=== PATIENT | female | born 2000 | race Caucasian/White ===

== ENCOUNTER 2020-09-16 13:13 | Outpatient (CLI) | payer BC, OTHER ==
[~2020-09-16] VITALS: Ht 177.8 cm; Wt 136.1 kg
[2020-09-16] MEDS ORDERED: IRON325 M1 PO (14:02)
[2020-09-16] MEDS ORDERED: PROTONIX40 MG PO (14:03)
[2020-09-16 14:35] LABS: HEMOGLOBIN 12.7 gm/dl (12.3-15.3); RED BLOOD COUNT 4.71 M/UL (4.00-5.10); WHITE BLOOD COUNT 10.4 K/UL (4.5-11.0)
[2020-09-17] MEDS ORDERED: IBUPROFEN600 MG PO (08:05)
[2020-09-17] MEDS ORDERED: DOCUSATE SODIU100 MG PO (08:05)
[2020-09-17] MEDS ORDERED: HYDROCODON-ACE1 EAC4 PO (08:05)
== END 2020-09-16 14:36 | disposition home or self-care (01) ==
LOC: GENOP 13:13
PROVIDERS: Obstetrics & Gynecology
DX: Z01.812 Encounter for preprocedural laboratory examination (principal)
CPT/HCPCS: 36415; 81001; 85025

== ENCOUNTER 2020-09-17 05:29 | Inpatient (IN) | payer BC, OTHER ==
[~2020-09-17] VITALS: Ht 177.8 cm; Wt 136.1 kg
[~2020-09-17 05:29] MED LIST: IRON325 M1 PO; PROTONIX40 MG PO
[2020-09-17] MEDS ORDERED: HYDROCODON-ACE1 EAC4 PO (08:05)
[2020-09-17] MEDS ORDERED: DOCUSATE SODIU100 MG PO (08:05)
[2020-09-17] MEDS ORDERED: IBUPROFEN600 MG PO (08:05)
[2020-09-18 07:01] LABS: HEMOGLOBIN 9.6 gm/dl (12.3-15.3)
== END 2020-09-19 16:14 | disposition home or self-care (01) | DRG 788 ==
LOC: OB 05:29
PROVIDERS: ADMIT Obstetrics & Gynecology
PROC: 4A1HXCZ Monitoring of Products of Conception, Cardiac Rate, External Approach (ICD-10-PCS; 2020-09-17)
PROC: 10D00Z1 Extraction of Products of Conception, Low, Open Approach (ICD-10-PCS; principal; 2020-09-17 07:30)
DX: O34.211 Maternal care for low transverse scar from previous cesarean delivery (principal); Z3A.37 37 weeks gestation of pregnancy; O32.1XX1 Maternal care for breech presentation, fetus 1; Z20.822 Contact with and (suspected) exposure to COVID-19; Z37.2 Twins, both liveborn; O99.214 Obesity complicating childbirth; O99.62 Diseases of the digestive system complicating childbirth; K21.9 Gastro-esophageal reflux disease without esophagitis; O99.02 Anemia complicating childbirth; D64.9 Anemia, unspecified; E66.8 Other obesity; O32.2XX1 Maternal care for transverse and oblique lie, fetus 1; O30.043 Twin pregnancy, dichorionic/diamniotic, third trimester; Z90.49 Acquired absence of other specified parts of digestive tract; Z82.49 Family history of ischemic heart disease and other diseases of the circulatory system; Z80.1 Family history of malignant neoplasm of trachea, bronchus and lung
CPT/HCPCS: 36415; 81001; 82800; 85014; 85018; 85025; C9113; J0690; J1100; J1650; J1885; J2274; J2300; J2405; J2590; J3010; J7120; U0003

== ENCOUNTER 2021-05-24 19:24 | Emergency (ER) | payer BC ==
[~2021-05-24 19:24] MED LIST changes: +DOCUSATE SODIU100 MG PO; +HYDROCODON-ACE1 EAC4 PO; +IBUPROFEN600 MG PO
[2021-05-24 20:06] LABS: RED BLOOD COUNT 4.92 M/UL (4.00-5.10); WHITE BLOOD COUNT 10.4 K/UL (4.5-11.0)
[2021-05-24 20:34] LABS: BUN/CREATININE RATIO 17 (0-10)
== END 2021-05-24 22:00 | disposition home or self-care (01) ==
LOC: ER1 19:24
PROVIDERS: Physician Assistant
DX: R07.89 Other chest pain (principal); Z20.822 Contact with and (suspected) exposure to COVID-19
CPT/HCPCS: 0240U; 71045; 80053; 80307; 81001; 82550; 82553; 83874; 83880; 84484; 85025; 87086; 93005; 99285